=== PATIENT | female | born 1970 | race Caucasian/White ===

== ENCOUNTER 2024-01-02 10:57 | Outpatient (CLI) | payer MEDICARE, SELFPAY | END 2024-01-02 10:58 | disposition home or self-care (01) | PROVIDERS: Visit Provider Physician Assistant | DX: Z01.419 Encounter for gynecological examination (general) (routine) without abnormal findings (principal); Z12.4 Encounter for screening for malignant neoplasm of cervix; Z13.29 Encounter for screening for other suspected endocrine disorder; Z13.6 Encounter for screening for cardiovascular disorders; Z13.1 Encounter for screening for diabetes mellitus | CPT/HCPCS: 80061; 84443 ==

== ENCOUNTER 2024-05-19 10:26 | Outpatient (CLI) | payer OTHER, SELFPAY ==
--- NOTE | 2024-05-19 11:31 | W.ANESCHARGE ---
Anesthesia Charges Start Date/Time Anesthesia Start Date: 05/19/24 Anesthesia Start Time: 10:55 Stop Date/Time Anesthesia Stop Date: 05/19/24 Anesthesia Stop Time: 11:30
--- NOTE | 2024-05-19 11:33 | W.ANESCHARGE ---
Anesthesia Charges Start Date/Time Anesthesia Start Date: 05/19/24 Anesthesia Start Time: 10:55 Stop Date/Time Anesthesia Stop Date: 05/19/24 Anesthesia Stop Time: 11:30
== END 2024-05-19 10:27 | disposition home or self-care (01) ==
LOC: OP CLINIC 10:27
PROVIDERS: Visit Provider Surgery
DX: Z12.11 Encounter for screening for malignant neoplasm of colon (principal); D12.2 Benign neoplasm of ascending colon; D12.3 Benign neoplasm of transverse colon; Z83.719 Family history of colon polyps, unspecified
CPT/HCPCS: 00811; 00812; 45385; 88305; J2704

== ENCOUNTER 2024-06-15 16:01 | Outpatient (CLI) | payer OTHER, SELFPAY ==
[2024-06-18 02:17] LABS: HPV Source Cervix; HPV, High Risk by TMA Not Detected
== END 2024-06-15 16:02 | disposition home or self-care (01) ==
PROVIDERS: Visit Provider Physician Assistant
DX: Z12.4 Encounter for screening for malignant neoplasm of cervix (principal); Z11.51 Encounter for screening for human papillomavirus (HPV)
CPT/HCPCS: 87624; 87625; 88141; 88142

== ENCOUNTER 2024-06-23 10:07 | Outpatient (CLI) | payer OTHER, SELFPAY ==
--- NOTE | 2024-06-23 10:15 | CRLHL7_ITS ---
For Patients: As a result of the Century Cures Act, medical imaging exams and procedure reports are released immediately into your electronic medical record. You may view this report before your referring provider. If you have questions, please contact your health care provider. BILATERAL SCREENING MAMMOGRAM WITH COMPUTER-AIDED DETECTION AND TOMOSYNTHESIS TECHNIQUE: CC and MLO views were obtained. These mammographic images have been obtained using full-field digital technique. These mammographic images were interpreted with the benefit of computer-aided detection. Breast Tomosynthesis was used in this interpretation. COMPARISON FILM: 05/28/23, 03/27/22, 05/12/19. FINDINGS: There are scattered areas of fibroglandular density IMPRESSION: There is no radiographic evidence for malignancy. ASSESSMENT: BI-RADS Category 2: Benign RECOMMENDATION: Routine screening mammogram in 1 year. A lay language report of this examination will be provided to the patient. Dylon Harris M.D. Diagnostic Radiologist [email or web address] NAHOMI/[email or web address] Transcribed: 3:49 p.mYris salcedo/Dictated by: Dylon Harris MD @ 06/25/2024 10:32:00 AM (Electronically Signed)
== END 2024-06-23 10:08 | disposition home or self-care (01) ==
LOC: MAMMO 10:11
PROVIDERS: Visit Provider Physician Assistant
DX: Z12.31 Encounter for screening mammogram for malignant neoplasm of breast (principal)
CPT/HCPCS: 77063; 77067

== ENCOUNTER 2024-07-20 16:07 | Outpatient (CLI) | payer OTHER, SELFPAY | END 2024-07-20 16:08 | disposition home or self-care (01) | LOC: NFLDREF 16:09 | PROVIDERS: Visit Provider Physician Assistant | DX: Z12.4 Encounter for screening for malignant neoplasm of cervix (principal) | CPT/HCPCS: 88141; 88142 ==

== ENCOUNTER 2025-01-19 09:06 | Outpatient (CLI) | payer OTHER, SELFPAY | END 2025-01-19 09:07 | disposition home or self-care (01) | LOC: NFLDREF 09:06 | PROVIDERS: Visit Provider Physician Assistant | DX: E78.5 Hyperlipidemia, unspecified (principal) | CPT/HCPCS: 80061 ==